=== PATIENT | female | born 1995 | race Caucasian/White ===

== ENCOUNTER 2022-05-18 10:47 | Outpatient (CLI) | payer OTHER, SELFPAY ==
--- NOTE | ~2022-05-18 | CT_ITS ---
EXAMINATION: CT sinus wo con DATE: 05/18/2022 10:58 INDICATION: Bilateral maxillary sinus pressure, nasal congestion, drainage. Chronic sinusitis. TECHNIQUE: Computed tomography (CT) of the paranasal sinuses was performed without contrast. Iterativ e reconstruction technique was employed. Exam dose: 269.96 mGy-cm total exam DLP. COMPARISON: None FINDINGS: There is rightward bowing of the nasal septum superiorly, minimal leftward bowing of the lo wer septum. Intralamellar cell of the middle nasal turbinates, prominent on the left, minimal on the right. Moder ate soft tissue swelling of the left middle and both inferior nasal turbinates. There is minimal mucoperiosteal thickening of the left axillary sinus. There is soft tissue thickenin g at the left maxillary ostia and mild soft tissue thickening within the left infundibulum. The paranasal sinuses are otherwise clear. The right ostiomeatal unit is patent. The mastoid air cells are normally developed and aerated. IMPRESSION: Nasal septal bowing Soft tissue swelling of left middle and bilateral inferior nasal turbinates Intralamellar cell of the middle nasal turbinates, prominent on the left Minimal mucoperiosteal thickening of the left maxillary sinus Mild soft tissue thickening at the left maxillary ostium and left infundibulum Reviewed, dictated and finalized at [facility]. Reviewed, dictated and finalized at [facility].
== END 2022-05-18 10:48 | disposition home or self-care (01) ==
LOC: CHSIMG 10:48
PROVIDERS: PCP Family Medicine; Visit Provider Family Medicine
DX: J32.9 Chronic sinusitis, unspecified (principal); J34.2 Deviated nasal septum; J34.3 Hypertrophy of nasal turbinates
CPT/HCPCS: 70486

== ENCOUNTER 2022-12-01 00:31 | Day surgery (SDC) | payer OTHER, SELFPAY ==
[2022-11-23 12:22] VITALS: BMI 22.0
--- NOTE | 2022-11-23 12:26 | PC.NURSE ---
Report to the Outpatient Waiting Room, entrance under the green pavilion located off [facility], at time 0730 on date 12/01/22. Planned Procedure Time: 0930. Time changes happen often and if your time is changed the preop area will call you the afternoon before. - You and your visitor will be asked to self-screen and do not enter if you have any COVID symptoms. - A mask is optional within the hospital at this time. Patients may have clear liquids (water, carbonated beverages, clear teas, apple juice) until 3 hours prior to surgery with a maximum of 20 ounces. - No food from midnight until time of surgery Take the following medications with a SIP of water the morning of surgery: NONE DO NOT STOP ANY OF YOUR OTHER PRESCRIPTION MEDICATIONS PRIOR TO SURGERY ?EXCEPT THE FOLLOWING Medications to discontinue per physician: IBUPROFEN Date to take last dose: PER DR. MCCLURE Please no make-up, nail sri lankan, hairspray, perfume, deodorant, or body powder the day of surgery. No jewelry (including any body piercings) or valuables the day of surgery, leave them at home. Please take a shower or bath the night before, or the morning of, surgery with an antibacterial soap. Wear comfortable, loose fitting clothing. - Jewelry must be removed prior to entering the operating room. Rings and piercings that are not removed may be cut off. - The hospital will not accept responsibility for valuables. - Please leave all valuables, including medications, at home the day of surgery. If you are going home after surgery, a licensed logging truck driver must drive you home. - NO public transportation without another adult if you receive anesthesia. - We recommend that an adult stay with you for 24 hours following discharge. - We also recommend that you do not drive, make important decision, drink alcoholic beverages, or take any drugs that were not prescribed by your health care provider for at least 24 hours after your discharge time. Follow any additional instructions given to you from your surgeon. If you or anyone in your household have experienced Covid symptoms in the past week, please notify your surgeon or the nurse liaison at the phone number below for possible testing. Telephone instructions given to PT - ANGELA HERRERA and asked if any additional questions and then verbalized understanding. Patient advised to call surgeon office or pre surgery nurse liaison [phone] if any additional questions.
--- NOTE | 2022-11-30 16:50 | P.HP_ITS ---
H&P: HPI History of Present Illness Date/Time: 11/30/22 16:50 Chief Complaint: chronic sinusitis nasal obstruction nasal congestion septal deviation turbinate hypertrophy Narrative: planned procedure Review of Systems Review of Systems: All systems reviewed & are unremarkable except as noted in HPI and below PMFSH Past Medical History Medical History No active medical problems Surgical History Surgical History No history of previous surgery Social History Social History (Updated 07/01/22 @ 10:32 by Faith Doyle [facility]) Smoking status: Never smoker Alcohol intake: never Substance use: current Substance use type: marijuana Lack of Transportation: No Lack of Food: Never True Current Housing: I Have Housing Concerned About Future Housing: No Difficulty Paying Gas/Electric Bills: No Difficulty Paying for Meds: No Currently Unemployed: No Education: High School Diploma/GED Difficulty w/ Childcare or Family Care: No Living arrangements: with roommate(s) Spiritual care concerns: No Meds Home Medications and Allergies Home Medications Medication Instructions Recorded Confirmed Type lisdexamfetamine 40 mg capsule 40 mg PO DAILY #10 caps 10/16/22 11/23/22 Rx (Vyvanse) ibuprofen 600 mg tablet 600 mg PO TID PRN Pain 11/23/22 11/23/22 History Allergies Allergy/AdvReac Type Severity Reaction Status Date / Time No Known Allergies Allergy Verified 11/23/22 12:22 Exam Narrative: chronic appearing sinuses septal deviation turbinate hypertrophy Assessment and Plan Assessment and plan (1) Hypertrophy of both inferior nasal turbinates: Code(s): J34.3 - Hypertrophy of nasal turbinates Status: Acute Assessment and Plan: plan OR forfor bilateral image guided endoscopic maxillary antrostomies right- sided anterior ethmoidectomy left-sided total ethmoidectomy left-sided sphenoidotomy left-sided resection sommer bullosa turbinate reduction bilaterally with outfracture endoscopic assisted septoplasty risks were discussed including bleeding infection damage to surrounding structures need for further procedures time for time off school damage to any structure of the clavicles by myself damage to any structure in the induction and maintenance of anesthesia including vocal cord paralysis. Here at risk for cauda cues. Postoperative bleeding postoperative infection. Total blindness CSF leak brain brain damage change in vision septal perforation (2) Nasal septal deviation: Code(s): J34.2 - Deviated nasal septum Status: Acute (3) Headache: Code(s): R51.9 - Headache, unspecified Status: Acute (4) Chronic sinusitis: Code(s): J32.9 - Chronic sinusitis, unspecified Status: Acute (5) Chronic headaches: Code(s): R51.9 - Headache, unspecified; G89.29 - Other chronic pain Status: Acute
[2022-12-01] VITALS (10 sets, daily range): BP systolic 113–134; BP diastolic 69–84; PULSE 40–84; RESP 12–20; TEMP 36–36.3; O2SAT 100
--- NOTE | 2022-12-01 07:19 | WPDHPUPDATE1 ---
History and Physical Update Update Date/Time: 12/01/22 07:19 History and Physical has been reviewed, including an updated exam of the patient. There are NO changes in the patient's condition. Risks, benefits, and alternatives have been discussed and questions answered. Patient agrees to proceed with procedure.
[2022-12-01] MEDS: ACETAMINOPHEN 500 MG TABLET 1000 MG PO (08:25)
[2022-12-01] MEDS: LACTATED RINGERS 1,000 ML 30 ML IV CONT ×2 (08:30→13:20)
--- NOTE | 2022-12-01 09:18 | P.PNAN_ITS ---
Anes - Initial Pre Proc Eval Procedure: Operation Date: 12/01/22 09:30 Proposed Procedures p Image Guided Bilateral Maxillary Antrostomy without Tissue Removal, Right Anterior Ethmoidectomy, Left Total Ethmoidectomy, Left Sphenoidectomy without Tissue Removal, Left Resection Jing Bullosa, Bilateral Inferior Turbinectomy with Outfracture, - Braden Hair MD s Endoscopic Septoplasty - Braden Hair MD Date/Time: 12/01/22 09:18 Surgeon: Braden Hair MD Pre Op Diagnosis: chronic sinusitis Patient Data Age: 27 Gender: F Height: 1.73 m Weight: 65.6 kg Last Vital Signs Temp 36.3 C L 12/01/22 07:41 Pulse 57 L 12/01/22 07:41 Resp 20 12/01/22 07:41 BP 114/69 12/01/22 07:41 Pulse Ox 100 12/01/22 07:41 O2 Del Method Room Air 12/01/22 07:41 Allergies Allergy/AdvReac Type Severity Reaction Status Date / Time No Known Allergies Allergy Verified 12/01/22 08:10 Home Medications Medication Instructions Recorded Confirmed Type lisdexamfetamine 40 mg capsule 40 mg PO DAILY #10 caps 10/16/22 12/01/22 Rx (Vyvanse) ibuprofen 600 mg tablet 600 mg PO TID PRN Pain 11/23/22 12/01/22 History Patient hx anesthesia problems: none Family hx anesthesia problems: none Results Review: All pre-operative results and documents have been reviewed as part of the pre- operative evaluation. [facility] Past Medical History Medical History No active medical problems Surgical History Surgical History No history of previous surgery Social History Social History Smoking status: Never smoker Alcohol intake: never Substance use: current Substance use type: marijuana Lack of Transportation: No Lack of Food: Never True Current Housing: I Have Housing Concerned About Future Housing: No Difficulty Paying Gas/Electric Bills: No Difficulty Paying for Meds: No Currently Unemployed: No Education: High School Diploma/GED Difficulty w/ Childcare or Family Care: No Living arrangements: with roommate(s) Spiritual care concerns: No Anes - Eval Final PreProcedure Day of Procedure 12/01/22 09:18 Patient weight: normal Heart: regular rate and rhythm Lungs: clear to auscultation Airway: Mallampati scale class 1 Neurological: alert and oriented Last oral intake: >/= 8 hours ASA classification: II Emergent: no Anesthetic plan: proceed Anesthesia type and monitoring: general ETT and standard monitoring Results Review: All pre-operative results and documents have been reviewed as part of the pre- operative evaluation. Informed Consent: The patient's anesthetic plan and its attendant risks and benefits were discussed with the patient/family/POA. Questions were solicited and answers provided to the satisfaction of the patient/family/POA.
[2022-12-01] MEDS: SCOPOLAMINE 1.5 MG PATCH TRANSDERM (09:28)
--- NOTE | 2022-12-01 10:05 | WPDHPUPDATE1 ---
History and Physical Update Update Date/Time: 12/01/22 10:05 Procedure will be endoscopic assisted septoplasty, bilateral inferior turbinate reduction with outfracture, bilateral image guided endoscopic maxillary antrostomies and anterior ethmoidectomies, left sommer bullosa resection.
[2022-12-01] MEDS: LIDO 1%/EPINEPHRINE 1:100,000 20 ML VIAL 14 ML INFILTRATE (12:46)
[2022-12-01] MEDS: OXYMETAZOLINE HCL 0.05% NAS 15 ML BTL (*BKC) 1 SPRAY NASAL (12:57)
--- NOTE | 2022-12-01 13:38 | W.PM.PROC2 ---
Procedure Note - Detailed Date of Procedure 12/01/22 Pre-op Diagnosis chronic sinusitis septal deviation turbinate hypertrophy, recurrent sinusitis Post-op Diagnosis Same Procedure Performed Bilateral image guided endoscopic maxillary antrostomy, bilateral anterior ethmoidectomies, endoscopic assisted septoplasty, inferior turbinate reduction bilaterally with outfracture, resection of left sommer bullosa Surgeon Braden Hair MD Anesthesia General Indications See above Findings Disease mucosa the left max and right anterior ethmoids. Completely obstructive and no T-cell left ethmoid blocking the right maxillary outflow to quite a while to dissect that out left septal deviation right high it to high septum large turbinates as well largely bony components Description of Procedure Patient identified consent verified preop. Patient brought to the operating room. Time-out performed. General anesthesia induced endotracheal tube secured airway. Patient prepped draped position procedure confirmed. Second time-out performed. Image guidance initiated and confirmed. Afrin-soaked pledgets placed for 5 minutes then removed from the bilateral nasal passages. 0 degree endoscope utilized total 13 cc 1% lidocaine 1 100,000 parts epinephrine injecting the bilateral nasal septum and inferior turbinates. Alton incision made left side left nasal septal flap elevated with 7 Ethiopian suction osteotome utilized to cross over right nasal septal flap elevated with 7 Ethiopian suction. Deviated nasal septum removed combination osteotome Kevin [place] forceps Ricardo forceps. Alton incision closed with interrupted 5 0 fast gut sutures. High septal deviation quilted with a 4 plain on a Dickson needle. Turbinates then reduced in the submucosal plane using microdebrider with 2.9 mm blade. They were then outfractured with [place] elevator. The entry points as well as mulberry tips were cauterized with Bovie suction electrocautery setting of 10. Maxillary antrostomies were performed bilaterally under image guidance with backbiter double ball tip probe straight through cut backbiter. The left was very difficult to dissect out the natural os given that there was an in no T-cell largely obstructing it. Took me quite some time. Sommer on the left was resected using sickle blade double ball tip probe and microdebrider. Anterior ethmoidectomy performed with microdebrider and [place] right-sided maxillary antrostomy performed with straight through cut backbiter image guidance double ball tip probe care since performed with microdebrider anterior sorry anterior ethmoidectomy performed with [place] and microdebrider. After the procedure the bilateral nasal passages were copiously irrigated with sterile saline bleeding was an acceptable rate very low. No pack was placed in bilateral middle meati eye. Macedo splints were placed bilaterally and sutured anteriorly with a 3-0 mattress nylon suture. Great care was taken to ensure that Macedo splints were lateral to the middle turbinates. Blood loss 25 cc. Patient tolerated the procedure well no immediate complications patient taken to PACU care the patient given Anesthesiology. Estimated Blood Loss 25 Drains No Packing Yes (Novapak) Pathology None sent Complications No immediate complications Condition Stable Disposition PACU [facility] Billing Surgery - Charge Forward: Surgery Billing
== END 2022-12-01 15:00 | disposition home or self-care (01) ==
PROVIDERS: PCP Family Medicine; Visit Provider Otolaryngology
PROC: (CPT 31256; principal; 2022-12-01 09:30)
PROC: (CPT 30520; 2022-12-01 09:30)
DX: J32.9 Chronic sinusitis, unspecified (principal); J34.2 Deviated nasal septum; J34.3 Hypertrophy of nasal turbinates; R51.9 Headache, unspecified; G89.29 Other chronic pain; F12.90 Cannabis use, unspecified, uncomplicated
CPT/HCPCS: 31256; 31254; 31240; 30520; 30140; 61782; A9270; J1100; J1170; J2250; J2405; J2704; J3010; J7120